=== PATIENT | female | born 1980 | race Caucasian/White ===

== ENCOUNTER 2018-02-07 08:57 | Emergency (ER) | payer OTHER ==
[2018-02-07 09:16] VITALS: BP 115/84; PULSE 82; RESP 20; TEMP 98.1
--- NOTE | 2018-02-07 09:48 | ED ---
General Adult HPI - General Chief complaint: Extremity Injury, Upper Stated complaint: rt shoulder pain Time Seen by Provider: 02/07/18 09:41 Source: patient, RN notes reviewed Mode of arrival: ambulatory Limitations: no limitations - History of Present Illness Initial comments: Patient 37-year-old female presenting to the emergency room today with a chief complaint of injury to the right shoulder that occurred yesterday. She does admit that she went to jump up onto a counter and she felt a pop in the right shoulder. She states that she's had pain with abduction greater than shoulder height since. She states that she keeps the next regarding the pain is minimal. Patient denies any other injury or or symptoms. Patient denies any recent fever, chills, shortness of breath, chest pain, back pain, abdominal pain , nausea or vomiting, numbness or tingling, headaches or visual changes, or any other complaints. - Related Data Home Medications Medication Instructions Recorded Confirmed Ibuprofen [Motrin Ib] 400 mg PO Q6H PRN 02/07/18 02/07/18 Previous Rx's Medication Instructions Recorded Ibuprofen [Motrin] 600 mg PO Q6HR PRN #40 day 02/07/18 Allergies Allergy/AdvReac Type Severity Reaction Status Date / Time codeine AdvReac Nausea & Verified 02/07/18 09:59 Vomiting Review of Systems ROS Statement: Those systems with pertinent positive or pertinent negative responses have been documented in the HPI. ROS Other: All systems not noted in ROS Statement are negative. Past Medical History Past Medical History: No Reported History History of Any Multi-Drug Resistant Organisms: None Reported Past Surgical History: Section, Tubal Ligation Additional Past Surgical History / Comment(s): oopherectomy Past Psychological History: No Psychological Hx Reported Smoking Status: Current every day smoker Past Alcohol Use History: Occasional Past Drug Use History: None Reported General Exam - General Exam Comments Initial Comments: General: The patient is awake and alert, in no distress, and does not appear acutely ill. Neck: The neck is supple, there is no tenderness or JVD. Musculoskeletal: Patient does have a normal appearance of the right shoulder obvious deformity. She shows limited range of motion above 90 with abduction. Patient strength is 5/5. Radial pulse 2+. Sensations intact. Neurological: A&O x 3. CN II-XII intact, There are no obvious motor or sensory deficits. Coordination appears grossly intact. Speech is normal. Skin: Skin is warm and dry and no rashes or lesions are noted. Psychiatric: Normal mood and affect. Limitations: no limitations Course Vital Signs 02/07/18 09:14 Temperature 98.1 F Pulse Rate 82 Respiratory 20 Rate Blood Pressure 115/84 O2 Sat by Pulse 98 Oximetry Medical Decision Making - Medical Decision Making X-ray reviewed negative for any acute fracture dislocation. Results were discussed with the patient. Patient is advised follow-up with orthopedics. Advised to continue antibiotics for pain. Advised to return for any other concerns. Disposition Clinical Impression: Shoulder injury Disposition: HOME SELF-CARE Condition: Good Additional Instructions: Please follow-up with orthopedics over the next 2 days. Please continue anti- inflammatories for pain. Please return instructions if symptoms increase or worsen or for any other concerns. Prescriptions: Ibuprofen [Motrin] 600 mg PO Q6HR PRN #40 day PRN Reason: Pain Is patient prescribed a controlled substance at d/c from ED?: No Referrals: None,Stated [Primary Care Provider] - 1-2 days Familia Herring DO [Doctor of Osteopathic Medicine] - 1-2 days Time of Disposition: 10:28
--- NOTE | 2018-02-07 10:03 | XR ---
Right shoulder HISTORY: Right shoulder pain 3 views of the right shoulder No comparisons Distal acromion is downturned. Glenohumeral joint is intact. Bone mineralization, joint spaces and al ignment are maintained. Right lung apex as visualized is normal. There is no fracture or dislocation. IMPRESSION: Correlate for impingement, shoulder MRI may be of benefit.
--- NOTE | 2018-02-07 10:37 | ED ---
Disposition Clinical Impression: Shoulder injury Disposition: HOME SELF-CARE Condition: Good Instructions: Shoulder Pain (ED) Additional Instructions: Please follow-up with orthopedics over the next 2 days. Please continue anti- inflammatories for pain. Please return instructions if symptoms increase or worsen or for any other concerns. Prescriptions: Ibuprofen [Motrin] 600 mg PO Q6HR PRN #40 day PRN Reason: Pain Is patient prescribed a controlled substance at d/c from ED?: No Referrals: Familia Herring DO [Doctor of Osteopathic Medicine] - 1-2 days None,Stated [Primary Care Provider] - 1-2 days
== END 2018-02-07 11:04 | disposition home or self-care (01) ==
LOC: EC 08:57
DX: S49.91XA Unspecified injury of right shoulder and upper arm, initial encounter (principal); F17.200 Nicotine dependence, unspecified, uncomplicated; Z88.5 Allergy status to narcotic agent; X58.XXXA Exposure to other specified factors, initial encounter; Y93.39 Activity, other involving climbing, rappelling and jumping off
CPT/HCPCS: 99283

== ENCOUNTER 2018-08-23 11:10 | Emergency (ER) | payer OTHER ==
[2018-08-23 11:20] VITALS: TEMP 97.8
[2018-08-23] MEDS ORDERED: KETOROLAC 30 MG/ML 1 ML VIAL IM STA (12:42)
--- NOTE | 2018-08-23 12:49 | ED ---
General Adult HPI - General Chief complaint: Back Pain/Injury Stated complaint: Fall, neck pain Time Seen by Provider: 08/23/18 12:13 Source: patient, RN notes reviewed Mode of arrival: ambulatory Limitations: no limitations - History of Present Illness Initial comments: 38-year-old female presents to the emergency department for a chief complaint of back pain 3 days. Patient states that 3 days ago she was jumping on a chair playing with her kids when she injured her back. States she was sitting on the trampoline with her knees pulled into her chest in the were jumping trying to get her into the air when she fell on the upper portion of her back and felt a pain. States it has been painful since that time. States it feels like it is painful right on her spine. Denies any bladder or bowel changes. Denies any fevers. Denies history of IV drug abuse. Denies any saddle anesthesia. States she has been taking Motrin and using a heating pad but it does not seem to be getting better. Denies any other injuries. Denies any neck pain at this time. Denies any lumbar or low back pain.Patient has no other complaints at this time including shortness of breath, chest pain, abdominal pain, nausea or vomiting, headache, or visual changes. - Related Data Home Medications Medication Instructions Recorded Confirmed Ibuprofen [Motrin Ib] 400 mg PO Q6H PRN 02/07/18 02/07/18 Previous Rx's Medication Instructions Recorded Ibuprofen [Motrin] 600 mg PO Q6HR PRN #40 day 02/07/18 Allergies Allergy/AdvReac Type Severity Reaction Status Date / Time codeine AdvReac Nausea & Verified 08/23/18 11:20 Vomiting Review of Systems ROS Statement: Those systems with pertinent positive or pertinent negative responses have been documented in the HPI. ROS Other: All systems not noted in ROS Statement are negative. Past Medical History Past Medical History: No Reported History History of Any Multi-Drug Resistant Organisms: None Reported Past Surgical History: Section, Tubal Ligation Additional Past Surgical History / Comment(s): oopherectomy Past Psychological History: No Psychological Hx Reported Smoking Status: Current every day smoker Past Alcohol Use History: Occasional Past Drug Use History: None Reported General Exam Limitations: no limitations General appearance: alert, in no apparent distress Head exam: Present: atraumatic, normocephalic, normal inspection Eye exam: Present: normal appearance. Absent: PERRL, EOMI, scleral icterus, conjunctival injection ENT exam: Present: normal exam, mucous membranes moist Neck exam: Present: normal inspection, full ROM. Absent: tenderness, meningismus, lymphadenopathy Respiratory exam: Present: normal lung sounds bilaterally. Absent: respiratory distress, wheezes, rales, rhonchi, stridor Cardiovascular Exam: Present: regular rate, normal rhythm, normal heart sounds. Absent: systolic murmur, diastolic murmur, rubs, gallop, clicks Back exam: Absent: CVA tenderness (R), CVA tenderness (L), vertebral tenderness (Patient localizes pain in the thoracic area. However no cervical, thoracic, or lumbar spine tenderness. Possible muscle spasm noted to the left paraspinal areas around the thoracic spine) Neurological exam: Present: alert, oriented X3, CN II-XII intact Psychiatric exam: Present: normal affect, normal mood Course Vital Signs 08/23/18 11:17 Temperature 97.8 F Pulse Rate 81 Respiratory 18 Rate Blood Pressure 108/65 O2 Sat by Pulse 99 Oximetry Medical Decision Making - Medical Decision Making 38 year old female presents for thoracic back pain after jumping on a trampoline 3 days ago. Denies any neck pain despite triage note, no cervical tenderness. No thoracic spine tenderness or lumbar spine tenderness however patient localizes her pain in the thoracic spine area. No red flag symptoms. Vitals are stable. No fevers. X-ray of the thoracic spine shows no acute fracture or dislocation seen. Disks spaces are well preserved. Patient likely is contusion or muscle spasm as left paraspinal area somewhat prominent. However patient refuses muscle relaxer stating she does not want any medications that could make her drowsy. Will follow up with primary care in 1-2 days. Will continue Motrin and Tylenol. Will return here if she has any worsening symptoms. Disposition Clinical Impression: Mechanical back pain Disposition: HOME SELF-CARE Condition: Good Instructions (If sedation given, give patient instructions): Back Pain (ED) Additional Instructions: Continue to take Motrin and Tylenol for pain. Do gentle stretching. Please follow up with primary care in 1-2 days. Return here to the emergency department if you have any worsening symptoms. Is patient prescribed a controlled substance at d/c from ED?: No Referrals: Erica Savage MD [STAFF PHYSICIAN] - 1-2 days Time of Disposition: 13:27
--- NOTE | 2018-08-23 13:10 | XR ---
EXAMINATION TYPE: XR thoracic spine complete DATE OF EXAM: 08/23/2018 CLINICAL HISTORY: pain TECHNIQUE: Frontal, lateral, and swimmer's view of thoracic spine are obtained. COMPARISON: None. FINDINGS: Thoracic spine show satisfactory alignment without evidence of acute fracture or dislocatio n. Vertebral body heights are preserved. Disc spaces are well preserved. Visualized ribs are unrem arkable. IMPRESSION: No acute fracture or dislocation is seen in the thoracic spine. ICD 10 NO FRACTURE, INITIAL EVALUATION
[2018-08-23 13:48] VITALS: BP 95/56; PULSE 63; RESP 16
== END 2018-08-23 13:48 | disposition home or self-care (01) ==
LOC: EC 11:10
DX: M54.6 Pain in thoracic spine (principal); F17.200 Nicotine dependence, unspecified, uncomplicated; Z90.721 Acquired absence of ovaries, unilateral; Z98.51 Tubal ligation status; Z88.5 Allergy status to narcotic agent; W09.8XXA Fall on or from other playground equipment, initial encounter; Y93.44 Activity, trampolining
CPT/HCPCS: 72072; 99283; 96372; J1885

== ENCOUNTER → 2018-11-20 | Outpatient (CLI) | payer OTHER ==
--- NOTE | 2018-11-20 11:30 | US ---
EXAMINATION TYPE: US thyroid st tissue head/neck DATE OF EXAM: 11/20/2018 COMPARISON: NONE CLINICAL HISTORY: E04.9 nontoxic goiter, unspecified. Normal bloodwork per pt. MD felt enlarged thyro id. GLAND SIZE: Right Lobe: 5.2 x 1.8 x 1.4 cm cm Overall Parenchyma: homogenous Left Lobe: 5.5 x 1.6 x 1.2 cm Overall Parenchyma: homogeneous Isthmus Thickness: 0.3 cm NODULES RIGHT: # of nodules measured on right: 0 LEFT: # of nodules measured on left: 0 ISTHMUS: # of nodules measured in the isthmus: 0 Bilateral neck scanned, no evidence of lymphadenopathy. IMPRESSION: Slightly thyromegaly although the thyroid gland remains homogeneous without nodule.
== END | disposition home or self-care (01) ==
LOC: RADUSWWP 10:46
PROVIDERS: ATTEND Family Medicine
DX: E04.9 Nontoxic goiter, unspecified (principal)
CPT/HCPCS: 76536

== ENCOUNTER → 2021-02-11 | Outpatient (CLI) | payer OTHER ==
--- NOTE | 2021-02-11 09:31 | US ---
EXAMINATION TYPE: US pelvic complete DATE OF EXAM: 02/11/2021 COMPARISON: NONE CLINICAL HISTORY: 40-year-old female N83.209 Unspecified ovarian cyst. Left pelvic pain during menstr uation; ; C section x 2; left ovary removed per patient. TECHNIQUE: Transabdominal sonographic images of the pelvis were acquired. Date of LMP: approximately 3 weeks ago FINDINGS: EXAM MEASUREMENTS: Uterus: 9.7 x 6.6 x 4.4 cm Endometrial Stripe: 1.3 cm Right Ovary: 4.5 x 4.4 x 2.1 cm Left Ovary: surgically absent. 1. Uterus: Anteverted 2. Endometrium: thickness is wnl for approximately 3 weeks from prior LMP 3. Right Ovary: Follicular changes present. A small, debris-filled cyst measures 1.7 x 1.6 x 1.1cm 4. Left Ovary: Surgically absent. 5. Bilateral Adnexa: wnl 6. Posterior cul-de-sac: Trace cul-de-sac free fluid likely physiologic. IMPRESSION: 1. Endometrial stripe measuring 1.3 cm. 2. Follicular changes in the right ovary. Left ovary surgically absent. 3. Trace cul-de-sac free fluid likely physiologic.
== END | disposition home or self-care (01) ==
LOC: RADUSWWP 07:19
PROVIDERS: ATTEND Family Medicine
DX: R10.2 Pelvic and perineal pain (principal); Z90.721 Acquired absence of ovaries, unilateral
CPT/HCPCS: 76856

== ENCOUNTER 2023-04-15 09:08 | Emergency (ER) | payer OTHER ==
[2023-04-15 09:18] VITALS: TEMP 98.2
--- NOTE | 2023-04-15 10:14 | ED ---
Back Pain HPI - General Chief Complaint: Back Pain/Injury Stated Complaint: Back Pain Time Seen by Provider: 04/15/23 10:12 Source: patient, RN notes reviewed Limitations: no limitations - History of Present Illness Initial Comments: This is a 42-year-old female who presents to the emergency department for lower back pain. States that this started 4 days ago. She was shoveling snow 6 days ago, and wonders if that may have triggered it, otherwise denies any injuries. Denies any loss of bowel/bladder control or saddle anesthesia. Pain is primarily in the lower back. She has tried [id number] Ibuprofen, Tylenol, heating packs, and muscle relaxant creams with no relief. Denies any pain in the abdomen or changes in bowel/bladder habits. MD Complaint: back pain - Related Data Home Medications Medication Instructions Recorded Confirmed Ibuprofen [Motrin Ib] 400 mg PO Q6H PRN 02/07/18 02/07/18 Previous Rx's Medication Instructions Recorded Ibuprofen [Motrin] 600 mg PO Q6HR PRN #40 day 02/07/18 Ketorolac [Toradol] 10 mg PO Q6HR PRN #15 tab 04/15/23 Lidocaine 5% Patch [Lidoderm 5% 1 patch TOPICAL DAILY PRN #30 patch 04/15/23 Patch] Metaxalone [Skelaxin] 800 mg PO TID PRN #20 tablet 04/15/23 Allergies Allergy/AdvReac Type Severity Reaction Status Date / Time codeine AdvReac Nausea & Verified 04/15/23 09:15 Vomiting Review of Systems ROS Statement: Those systems with pertinent positive or pertinent negative responses have been documented in the HPI. ROS Other: All systems not noted in ROS Statement are negative. Past Medical History Past Medical History: No Reported History History of Any Multi-Drug Resistant Organisms: None Reported Past Surgical History: Section, Tubal Ligation Additional Past Surgical History / Comment(s): oopherectomy Past Psychological History: No Psychological Hx Reported Smoking Status: Current every day smoker Past Alcohol Use History: Occasional Past Drug Use History: None Reported General Exam Limitations: no limitations General appearance: alert, in no apparent distress Head exam: Present: atraumatic, normocephalic, normal inspection Respiratory exam: Present: normal lung sounds bilaterally. Absent: respiratory distress, wheezes, rales, rhonchi, stridor Cardiovascular Exam: Present: regular rate, normal rhythm, normal heart sounds. Absent: systolic murmur, diastolic murmur, rubs, gallop, clicks GI/Abdominal exam: Present: soft, normal bowel sounds. Absent: distended, tenderness, guarding, rebound, rigid Back exam: Present: tenderness (Lower back) Neurological exam: Present: alert, oriented X3, CN II-XII intact Psychiatric exam: Present: normal affect, normal mood Skin exam: Present: warm, dry, intact, normal color. Absent: rash Course Vital Signs 04/15/23 04/15/23 09:12 10:15 Temperature 98.2 F Pulse Rate 84 68 Respiratory 20 16 Rate Blood Pressure 118/56 120/60 O2 Sat by Pulse 99 98 Oximetry Medical Decision Making - Medical Decision Making This is a 42-year-old female who presents to the emergency department for low back pain. Was pt. sent in by a medical professional or institution? @ -No Did you speak to anyone other than the patient for history? @ -No Did you review nursing and triage notes? @ -Yes, and I agree, it is accurate with regards to the patient's symptoms. Were old charts reviewed? @ -No Differential Diagnosis? @ -Differential Back Pain: Strain, zoster, cauda equina syndrome, epidural abscess, vertebral osteomyelitis, discitis, fracture, subluxation, disc herniation, DJD, spinal stenosis, dissection, AAA, pancreatitis, peptic ulcer disease, pyelonephritis, kidney stone, this is not meant to be an all-inclusive list. EKG interpreted by me (3pts min.)? @ -Not obtained X-rays interpreted by me (1pt min.)? @ -X-ray of the lumbar spine obtained. My interpretation identifies no acute fractures. CT interpreted by me (1pt min.)? @ -Not obtained U/S interpreted by me (1pt. min.)? @ -Not obtained What testing was considered but not performed? (CT, X-rays, U/S, labs)? Why? @ -None What meds were considered but not given? Why? @ -None Did you discuss the management of the patient with other professionals? @ -No Did you reconcile home meds? @ -No Was smoking cessation discussed for >3mins.? @ -No Was critical care preformed (if so, how long)? @ -No Were there social determinants of health that impacted care today? How? (Homelessness, low income, unemployed, alcoholism, drug addiction, transportation, low edu. Level, literacy, decrease access to med. care, group home, rehab)? @ -No Was there de-escalation of care discussed even if they declined? (Discuss DNR or withdrawal of care, Hospice)? @ -No What co-morbidities impacted this encounter? (DM, HTN, Smoking, COPD, CAD, Cancer, CVA, Hep., AIDS, mental health diagnosis, sleep apnea, morbid obesity)? @ -None Was patient admitted / discharged? @ -Discharged. X-ray of the lumbar spine obtained revealing no acute process. Urinalysis negative for signs of infection. Patient given Toradol, Norflex, and lidocaine patches with some improvement in symptoms. Advised that this is likely related to a lumbar strain. Prescription for Toradol, Skelaxin, and lidocaine patches provided with dosing instructions reviewed. Otherwise advised follow-up with her primary care provider. Undiagnosed new problem with uncertain prognosis? @ -None Drug Therapy requiring intensive monitoring for toxicity (Heparin, Nitro, Insulin, Cardizem)? @ -None Were any procedures done? @ -None Diagnosis/symptom? @ -Lumbar strain Acute, or Chronic, or Acute on Chronic? @ -Acute Uncomplicated (without systemic symptoms) or Complicated (systemic symptoms)? @ -Uncomplicated Side effects of treatment? @ -None Exacerbation, Progression, or Severe Exacerbation] @ -Not applicable Poses a threat to life or bodily function? @ -No Return precautions reviewed in depth, the patient is instructed to return to the emergency department with any new, worsening, or concerning symptoms. Patient verbalized understanding. This case was discussed in detail with the attending ED physician, Dr. Boyd. P resentation, findings, and treatment plan discussed in detail as well. - Lab Data Lab Results 04/15/23 Range/Units 10:55 Urine Color Colorless Urine Appearance Clear (Clear) Urine pH 5.5 (5.0-8.0) Ur Specific [place] 1.009 (1.001-1.035) Urine Protein Negative (Negative) Urine Glucose (UA) Negative (Negative) Urine Ketones Negative (Negative) Urine Blood Negative (Negative) Urine Nitrite Negative (Negative) Urine Bilirubin Negative (Negative) Urine Urobilinogen <2.0 (<2.0) mg/dL Ur Leukocyte Esterase Large H (Negative) Urine RBC 2 (0-5) /hpf Urine WBC 5 (0-5) /hpf Ur Squamous Epith Cells 2 (0-4) /hpf Urine Bacteria Rare H (None) /hpf Urine Mucus Rare H (None) /hpf - Radiology Data Radiology results: report reviewed, image reviewed Disposition Clinical Impression: Strain of lumbar region Disposition: HOME SELF-CARE Instructions (If sedation given, give patient instructions): Acute Low Back Pain (ED) Additional Instructions: Return to the emergency department with any new, worsening, or concerning symptoms.Take the Toradol with Tylenol as needed for pain relief. If you choose to take the Toradol, do not take any other anti-inflammatories such as ibuprofen, take one or the other. You can take the Skelaxin as 0.5-1 tablet 3-4x daily for pain and tightness. You can also apply the lidocaine patches daily. Follow up with your primary care provider in 1-2 days. Prescriptions: Lidocaine 5% Patch [Lidoderm 5% Patch] 1 patch TOPICAL DAILY PRN #30 patch PRN Reason: Pain Metaxalone [Skelaxin] 800 mg PO TID PRN #20 tablet PRN Reason: Pain Ketorolac [Toradol] 10 mg PO Q6HR PRN #15 tab PRN Reason: Pain Is patient prescribed a controlled substance at d/c from ED?: No Referrals: Toby Gant DO [Primary Care Provider] - 1-2 days Time of Disposition: 11:30
[2023-04-15] MEDS ORDERED: KETOROLAC 15 MG/ML 1 ML VIAL IVP STA (10:39)
[2023-04-15] MEDS ORDERED: LIDOCAINE 4% PATCH TOPICAL ONE (10:39)
[2023-04-15] MEDS ORDERED: ORPHENADRINE 30 MG/ML 2 ML VIAL IVP STA ×2 (10:39)
[2023-04-15 10:55] VITALS: BP 120/60; PULSE 68; RESP 16
[2023-04-15 11:06] LABS: Appearance,Urine Clear (Clear); Bacteria,Urine Rare /hpf; Bilirubin,Urine Negative (Negative); Blood,Urine Negative (Negative); Color,Urine Colorless; Glucose,Urine (UA) Negative (Negative); Ketones,Urine Negative (Negative); Leukocyte Esterase,Urine Large (Negative); Mucus,Urine Rare /hpf; Nitrite,Urine Negative (Negative); PH, Urine 5.5 (5.0-8.0); Protein,Urine Negative (Negative); RBC,Urine 2 /hpf (0-5); Specific Gravity,Urine 1.009 (1.001-1.035); Squamous Epithelial Cell,Urine 2 /hpf (0-4); Urobilinogen,Urine <2.0 mg/dL (<2.0); WBC,Urine 5 /hpf (0-5)
--- NOTE | 2023-04-15 11:20 | XR ---
EXAM TYPE: LUMBAR SPINE X RAY SERIES COMPARISON: NONE HISTORY: Pain TECHNIQUE: 3 views are submitted. FINDINGS: Alignment is anatomic. The pedicles are intact. The transverse processes are intact. There is no s pondylolysis or spondylolisthesis. Mild facet arthropathy L5-S1. IMPRESSION: 1. Mild facet arthropathy L5-S1.
== END 2023-04-15 12:14 | disposition home or self-care (01) ==
LOC: EC 09:08
DX: S39.012A Strain of muscle, fascia and tendon of lower back, initial encounter (principal); F17.200 Nicotine dependence, unspecified, uncomplicated; Z88.5 Allergy status to narcotic agent; X58.XXXA Exposure to other specified factors, initial encounter
CPT/HCPCS: 81001; 72100; 99283; 96374; 96375; J2360; J1885